=== PATIENT | male | born 1995 | race Caucasian/White ===

== ENCOUNTER 2016-09-10 20:28 | Emergency (ER) | payer SELFPAY ==
[2016-09-10] MEDS ORDERED: RANITIDINE 50 MG/2 ML VIAL IVP ONE (20:48)
[2016-09-10] MEDS ORDERED: methylPREDNISolone SOD SUCC 125 MG/2 ML VIAL IVP ONE (20:48)
--- NOTE | 2016-09-10 20:56 | EDPHY ---
H & P Time Seen by Provider: 09/10/16 20:43 HPI/ROS: HPI Allergic reaction. 20-year-old male by private vehicle. 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 He reports that this person multiple cats. Patient reports that while at the house he also 8 papaya and knots. He reports that he started sneezing. He reports that he went home laid down and then woke up with a diffuse red rash over his body, facial puffiness/ swelling and he vomited twice. He has a prior allergy to cats, described as just sneezing. No other known allergies. ROS: Constitutional: No fever, no chills. As above. Eyes: No discharge. No changes in vision. Swelling of eyelids. ENT: No sore throat. No nasal congestion or rhinorrhea. As above. Respiratory: No cough. No shortness of breath. Cardiac: No chest pain, no palpitations. Gastrointestinal: No abdominal pain, no vomiting, no diarrhea. Genitourinary: No hematuria. No dysuria or increased frequency with urination. Musculoskeletal: No back pain. No neck pain. No myalgias or arthralgias. Skin: No rashes. Neurological: No headache. No focal weakness or altered sensation. Past medical history: ACL repair. Social history: Here by himself. Student at [employer]. Nonsmoker. Physical Exam: General Appearance: Alert, no distress. This patient is responding to questions appropriately and in full sentences. This patient appears well- hydrated and well-nourished. Eyes: Pupils equal and round, mild angioedema of the upper lower lids. Mild generalized facial swelling. ENT, Mouth: Mucous membranes are moist. The pharyngeal tissues are unremarkable. No edema or swelling. No asymmetry suggestive of abscess. No erythema or exudates. No stridor on auscultation of his neck. No voice changes. Respiratory: There are no retractions, lungs are clear to auscultation with good air movement bilaterally. No wheezing. No rhonchi. No tachypnea. Cardiovascular: Regular rate and rhythm. No murmur. Gastrointestinal: Abdomen is soft and nontender, no masses, bowel sounds normal. No focal tenderness at McBurney's point. No Child sign. Neurological: Motor sensory function is grossly intact. Cranial nerves are normal. Gait is normal. Skin: Warm and dry, diffuse erythematous blanching rash over entire body. Musculoskeletal: Neck is supple and nontender. Extremities are symmetrical. All joints range without pain or impingement. Psychiatric: No agitation. No depression. Database: EKG: Imaging: Procedures: Emergency department course: IV placed. He was placed on a cardiac cath lab manager. He was initially given 300 mcg of IM epinephrine. He was given 50 mg of IV ranitidine, off 50 mg of IV Benadryl and 125 mg of IV Solu-Medrol. 11:00 p.m., patient re-evaluated. He appears much better. His rash is almost completely resolved. His facial edema has resolved. Repeat pharyngeal exam is unremarkable. His breath sounds are clear on auscultation. His vital signs have been reviewed and are normal. He feels comfortable going home and I feel he is safe for discharge. Plan will be to prescribe him antihistamines and a short course of steroids. Return to emergency department precautions have been discussed with him. I will also prescribe him an EpiPen. All of his questions were answered. Follow-up was reviewed. He was discharged in good condition. Differential Diagnosis: The differential diagnosis on this patient includes but is not limited to allergic reaction, anaphylactoid reaction, anaphylaxis, Miller-Jay syndrome , erythema multiforme, erythema nodosum. This represents a partial list of diagnoses considered. These considerations are based on history, physical exam , past history, reassessment and diagnostic testing. Smoking Status: Never smoked Constitutional: Initial Vital Signs Temperature (C) 36.6 C 09/10/16 20:43 Heart Rate 84 09/10/16 20:43 Respiratory Rate 16 09/10/16 20:43 Blood Pressure 107/54 L 09/10/16 20:43 O2 Sat (%) 96 09/10/16 20:43 O2 Delivery Mode Room Air Allergies/Adverse Reactions: cat dander Allergy (Verified 09/10/16 20:38) papaya Allergy (Verified 09/10/16 20:38) Home Medications: Medication Instructions Recorded EPINEPHRINE [EPIPEN] 0.3 mg IJ ONCE PRN #1 09/10/16 Famotidine [Pepcid] 40 mg PO BID #14 tab 09/10/16 diphenhydrAMINE [Benadryl 50 MG 50 mg PO Q6-8PRN PRN #10 cap 09/10/16 (*)] predniSONE [prednisone 20mg (RX)] 60 mg PO DAILY #9 tab 09/10/16 Medical Decision Making - Data Points Medications Given: Discontinued Medications Diphenhydramine HCl (Benadryl Injection) 50 mg IVP EDNOW ONE Stop: 09/10/16 20:49 Last Admin: 09/10/16 20:55 Dose: 50 mg Epinephrine HCl (Epinephrine) 0.3 mg IM EDNOW ONE Stop: 09/10/16 20:49 Last Admin: 09/10/16 20:57 Dose: 0.3 mg Famotidine/Sodium Chloride (Pepcid 20 Mg (Premix)) 50 mls @ 200 mls/hr IV EDNOW ONE Stop: 09/10/16 21:27 Last Admin: 09/10/16 21:05 Dose: 50 mls Famotidine/Sodium Chloride (Pepcid 20 Mg (Premix)) 50 mls @ 200 mls/hr IV EDNOW ONE Stop: 09/10/16 21:28 Last Admin: 09/10/16 21:05 Dose: 50 mls Methylprednisolone Sodium Succinate (Solu-Medrol) 125 mg IVP EDNOW ONE Stop: 09/10/16 20:49 Last Admin: 09/10/16 20:55 Dose: 125 mg Departure - Departure Disposition: Home, Routine, Self-Care Clinical Impression: Rash, Allergic reaction Condition: Good Instructions: General Allergic Reaction (ED) Additional Instructions: Read and follow provided instructions. Follow-up with your primary care physician in 1-2 days for re-evaluation. Take medication as prescribed. Return to the emergency department for return of rash, facial swelling, any sensation of throat swelling, difficulty breathing or other serious concerns. Referrals: NONE *PRIMARY CARE P,. [Primary Care Provider] - As per Instructions Prescriptions: diphenhydrAMINE [Benadryl 50 MG (*)] 50 mg PO Q6-8PRN PRN #10 cap PRN Reason: Rash EPINEPHRINE [EPIPEN] 0.3 mg IJ ONCE PRN #1 PRN Reason: Rash Famotidine [Pepcid] 40 mg PO BID #14 tab predniSONE [prednisone 20mg (RX)] 60 mg PO DAILY #9 tab
[2016-09-10] MEDS ORDERED: FAMOTIDINE 20 MG/NACL/50 ML BAG IV ONE (20:57)
[2016-09-10] MEDS ORDERED: FAMOTIDINE 20 MG/NACL 50 ML IV ONE ×2 (21:13→21:14)
[2016-09-10 23:27] VITALS: BP 94/50; PULSE 65; RESP 19; TEMP 98.6; O2SAT 97
== END 2016-09-10 23:27 | disposition home or self-care (01) ==
DX: R21 Rash and other nonspecific skin eruption (principal); T78.40XA Allergy, unspecified, initial encounter
CPT/HCPCS: 96374; J2780